=== PATIENT | male | born 1970 | race Two or more races ===

== ENCOUNTER 2022-10-26 17:06 | Emergency (ER) | payer OTHER ==
[~2022-10-26] VITALS: Ht 198.1 cm; Wt 133.8 kg
[2022-10-26] MEDS ORDERED: COZAAR100 MG PO (17:24)
[2022-10-26] MEDS ORDERED: LEVOTHYROXINE25 MCG PO (17:24)
== END 2022-10-26 19:50 | disposition home or self-care (01) ==
LOC: ER 17:06
DX: H53.8 Other visual disturbances (principal)